=== PATIENT | male | born 1995 | race Caucasian/White ===

== ENCOUNTER → 2016-12-08 | Outpatient (CLI) | payer BC ==
--- NOTE | 2016-12-08 10:56 | KCIC ---
MR of the left knee Indication: Left knee pain. Previous knee injury and surgery for a bone fragment in 2011. Second knee injury with new bone fragment medial to the patella one year ago. Pain. Technique: The standard multiplanar sequences are obtained. COMPARISON: Not available Findings: Medial meniscus: Mild deformity and intrameniscal signal but no clear-cut tear Lateral meniscus: Intact. Anterior cruciate ligament: Intact Posterior cruciate ligament: Intact Medial collateral ligament: Intact. Iliotibial band: Intact. Posterolateral structures: Fibular collateral ligament, biceps tendon and popliteus tendon are intact. Extensor mechanism: Surgical type artifact at the anterior patella and proximal patellar tendon. No acute tear. Fluid: Small joint effusion. Several osteochondral loose bodies are clustered within the suprapatellar recess with the largest individual body measuring 23 mm. Small Alves's cyst, also containing a cluster of osteochondral loose bodies. Articular cartilage -patellofemoral joint: Focal chondromalacia at the far medial femoral trochlea, axial series 4, image 16. -medial compartment: Irregularity of the subchondral bone surface compatible with history of osteochondral repair. Mild subchondral marrow edema, but no evidence of subchondral cyst, fracture or collapse. Heterogeneous signal identified at the weightbearing medial femoral condyle cartilage, compatible with fibrocartilaginous growth. No evidence of cartilage delamination or separation. No evidence of unstable or osteochondral fragment. -lateral compartment:Intact Bones: No significant lesion or acute fracture. Soft tissue: Unremarkable Impression: 1. Subchondral bone surface irregularity at the weightbearing medial femoral condyle, presumably secondary to prior osteochondral repair. Heterogeneous signal within overlying fibrocartilage. No evidence of unstable osteochondral fragment, subchondral cystic change or collapse, or acute cartilage delamination. 2. Mild medial meniscal degeneration without evidence of a tear. 3. Multiple osteochondral loose bodies, clustered in the suprapatellar recess and within a small Alves's cyst. 4. 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 Electronically signed by: Adan Allison MD (12/08/2016 10:53 AM)
== END | disposition home or self-care (01) ==
LOC: KCIC MRI 08:25
PROVIDERS: ATTEND Orthopaedic Surgery
DX: M17.12 Unilateral primary osteoarthritis, left knee (principal); M71.22 Synovial cyst of popliteal space [Baker], left knee; M22.42 Chondromalacia patellae, left knee; S76.102D Unspecified injury of left quadriceps muscle, fascia and tendon, subsequent encounter; M25.862 Other specified joint disorders, left knee; M25.462 Effusion, left knee; X58.XXXD Exposure to other specified factors, subsequent encounter
CPT/HCPCS: 73721

== ENCOUNTER → 2016-12-29 | Outpatient (CLI) | payer BC ==
[2016-12-29 10:14] LABS: ALBUMIN 3.9 g/dL (3.4-5.0); ALBUMIN/GLOBULIN RATIO 1.2 (1.0-1.7); GFR 94.3; POTASSIUM 4.2 mmol/L (3.5-5.1); TOTAL BILIRUBIN 0.3 mg/dL (0.2-1.0); TOTAL PROTEIN 7.2 g/dL (6.4-8.2)
== END | disposition home or self-care (01) ==
LOC: LAB 09:16
PROVIDERS: ATTEND Internal Medicine Cardiovascular Disease
DX: R94.31 Abnormal electrocardiogram [ECG] [EKG] (principal)
CPT/HCPCS: 36415; 80053

== ENCOUNTER → 2017-01-05 | Outpatient (CLI) | payer BC ==
--- NOTE | 2017-01-05 09:53 | CARD ---
APPROVED REPORT EXAM: Two-dimensional and M-mode echocardiogram with Doppler and color Doppler. Other Information Quality : Average Rhythm : Bradycardia, RBBB INDICATION Abnormal ECG 2D DIMENSIONS RVDd2.6 (2.9-3.5cm)Left Atrium(2D)3.6 (1.6-4.0cm) IVSd1.1 (0.7-1.1cm)Aortic Root(2D)3.3 (2.0-3.7cm) LVDd4.7 (3.9-5.9cm)LVOT Diameter2.2 (1.8-2.4cm) PWd1.1 (0.7-1.1cm)LVDs2.8 (2.5-4.0cm) FS (%) 18.3 %SV38.1 ml LVEF(%)52.0 (>50%) Aortic Valve AoV Peak Clemente.101.9cm/sAoV VTI19.2cm AO Peak GR.4.1mmHgLVOT Peak Clemente.81.2cm/s LVOT VTI 19.59cmAO Mean GR.2mmHg MARCELA (VMAX)3.26ec7WIG (VTI)3.97cm2 Mitral Valve MV E Kfkobghc40.5cm/sMV DECEL COWS505sg MV A Gqptwgcl34.4cm/sMV VAW52yx E/A Ratio3.4MV A Isrupfso638wm MVA (PHT)3.42cm2 TDI E/Lateral E'5.3E/Medial E'6.8 Pulmonary Valve PV Peak Mxttnfhq64.3cm/sPV Peak Grad.4mmHg RVOT VTI19.4cm Tricuspid Valve TR P. Zrgpdbgk059li/sRAP LPQTCDMV3skUo TR Peak Gr.85txTuAKBD33daUz Pulmonary Vein S1 Wnytqdry74.3cm/sD2 Bpdsvouq91.9cm/s LEFT VENTRICLE The left ventricle is normal size. There is normal left ventricular wall thickness. Left ventricle sy stolic function is normal. The Ejection Fraction is 50-55%. There is normal LV segmental wall motion. Septal motion consistent with conduction abnormality. The left ventricular diastolic function and fi lling is normal for age. There is no ventricular septal defect visualized. RIGHT VENTRICLE The right ventricle is normal size. The right ventricular systolic function is normal. ATRIA The left atrium size is normal. The right atrium size is normal. The interatrial septum is intact wit h no evidence for an atrial septal defect or patent foramen ovale as noted on 2-D or Doppler imaging. AORTIC VALVE The aortic valve is normal in structure and function. Doppler and Color Flow revealed no significant aortic regurgitation. There is no significant aortic valvular stenosis. MITRAL VALVE The mitral valve is normal in structure and function. There is no mitral valve stenosis. Doppler and Color Flow revealed trace mitral regurgitation. TRICUSPID VALVE The tricuspid valve is normal in structure and function. Doppler and Color Flow revealed trace tricus pid regurgitation. The PA pressure was estimated at 29 mmHg. There is no tricuspid valve stenosis. PULMONIC VALVE The pulmonic valve is not well visualized. Doppler and Color Flow revealed no pulmonic valvular regur gitation. There is no pulmonic valvular stenosis. GREAT VESSELS The aortic root is normal in size. Normal pulmonary venous flow (Doppler). The IVC is dilated and col lapses >50% with inspiration. PERICARDIAL EFFUSION There is no evidence of significant pericardial effusion. Critical Notification Critical Value: No <Conclusion> Left ventricle systolic function is normal. The Ejection Fraction is 50-55%. There is normal LV segmental wall motion. Septal motion consistent with conduction abnormality.
== END | disposition home or self-care (01) ==
LOC: ECHO 08:49
PROVIDERS: ATTEND Internal Medicine Cardiovascular Disease
DX: I08.1 Rheumatic disorders of both mitral and tricuspid valves (principal)
CPT/HCPCS: 93306

== ENCOUNTER 2017-01-26 10:34 | Day surgery (SDC) | payer BC ==
--- NOTE | 2017-01-25 15:17 | PDOC1 ---
History and Physical Date of Admission Date of Admission DATE: 01/26/17 Identification/Chief Complaint Chief Complaint left knee pain Problems: Source Source: Chart review History of Present Illness History of Present Illness Federico is a 21 year old male patient with left knee pain. 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 He states that after activities he occasionally has a loose body float to the superomedial aspect of his knee. If this happens, he just pushes it back down into his knee. Also, he said it has travelled to the lateral aspect of his left knee before, which was painful to put back. An MRI at [facility] on 12.08.16 showed several osteochondral loose bodies in the suprapatellar recess of his left knee and in a barksdale's cyst. It did not show any severe cartilage defect, simply postsurgical changes and chondromalacia. The largest loose body is 23 mm in diameter. Past Medical History Cardiovascular: No pertinent hx Pulmonary: No pertinent hx GI: No pertinent hx Past Surgical History Past Surgical History: Other (left knee transchondral drilling of OCD lesion ) Family History Family History: No Significant Social History Smoke: No ALCOHOL: rare Drugs: None Current Medications Current Medications Active Scripts Active Reported No Known Medications Prior To Admisstion (Info) Each 1 Each Allergies Allergies: Coded Allergies: Penicillins (Verified Allergy, Unknown, UNKNOWN ( HAPPENED A CHILD), ) Physical Exam General: Alert, Oriented X3, Cooperative, No acute distress HEENT: Atraumatic, EOMI Lungs: Normal air movement Heart: RRR Abdomen: Soft Extremities: No clubbing, No cyanosis, No edema, Normal pulses, Other (LEFT KNEE normal alignment, no masses and no effusion. No tenderness to palpation. Range of motion is 0-125 degrees, without crepitus or pain at the extremes of motion. The knee is stable to varus and valgus stress without subluxation or laxity. Muscle strength is normal (5/5) for quadriceps and hamstrings, and muscle tone is normal. The skin is normal rashes, lesions or ulcers, and a well healed midline scar from his previous surgery. Light touch sensation is intact. No edema and no varicosities. Dorsalis pedis pulse is intact and capillary refill is normal. No palpable loose bodies.) Skin: No rashes, No breakdown, No significant lesion Neuro: Normal speech, Sensation intact Psych/Mental Status: Mental status NL, Mood NL Images Images An MRI at [facility] on 12.08.16 showed several osteochondral loose bodies in the suprapatellar recess of his left knee and in a barksdale's cyst. It did not show any severe cartilage defect, simply postsurgical changes and chondromalacia. The largest loose body is 23 mm in diameter. VTE Prophylaxis Ordered VTE Prophylaxis Devices: Yes VTE Pharmacological Prophylaxi: Yes Assessment/Plan Assessment/Plan Loose body of left knee, left knee pain. His MRI does show multiple loose bodies. He fortunately does not have any major sure cartilage defect simply chondromalacia and postsurgical changes. In this case. Dr. Glez recommended arthroscopic loose body removal, and he likely would need minor chondroplasty, also arthroscopically at the same time. We discussed potential risks of arthroscopic surgery, including risks of bleeding, infection , progressive arthritis, blood clots, or other potential surgical or anesthetic complications. All of the patient's questions were answered and he desires to proceed with surgery. He would like to get this done as soon as possible so that he may work later this summer. He will need 2-3 weeks of limited activity postoperatively. CANDIDO ROACH Jan 25, 2017 15:17
[~2017-01-26] VITALS: Ht 193 cm; Wt 105.7 kg
[~2017-01-26 10:34] MED LIST: BUPIVAC MPF-EPI 0.5%-1:200000 30 ML VIAL. ONE; CLINDAMYCIN 600MG PREMIX 50 ML IV PRN; EPINEPHrine VIAL 30 MG/30 ML VIAL ONE; HYDROmorphone 2 MG/ML VIAL IV PRN; IV RINGERS,LACTATED 1000ML 1,000 ML IV SCH; LIDOCAINE 1% 1 ML SYRINGE. ID PRN; LIDOCAINE 2% PF Vial for OR 5 ML VIAL. ONE; MORPHINE SULFATE 4 MG/ML DISP.SYRIN. IV PRN; ONDANSETRON PF 4 MG/2 ML VIAL. IV PRN; PROCHLORPERAZINE 10 MG/2 ML VIAL. IV PRN; PROPOFOL 20 ML IV ONE; fentaNYL PF VIAL 100 MCG/2 ML VIAL IV PRN; fentaNYL PF VIAL 100 MCG/2 ML VIAL ONE
[2017-01-26] MEDS ORDERED: MIDAZOLAM HCL/PF 2 MG/2 ML VIAL. ONE (11:29)
[2017-01-26] MEDS ORDERED: FAMOTIDINE 20 MG/2 ML VIAL ONE (11:29)
[2017-01-26] MEDS ORDERED: DEXAMETHASONE SOD PHOS 20 MG/5 ML VIAL. ONE (11:29)
[2017-01-26] MEDS ORDERED: ONDANSETRON PF 4 MG/2 ML VIAL. ONE (11:29)
[2017-01-26] MEDS ORDERED: ePHEDrine PF IN SALINE 50 MG/5 ML DISP.SYRIN IV ONE (16:14)
[2017-01-26] MEDS ORDERED: SEVOFLURANE 61 TO 120 MINUTES. IH ONE (16:28)
[2017-01-26] MEDS ORDERED: HYDROcodone/APAP 7.5/325MG 1 TAB TABLET PO ONE (17:15)
[2017-01-26 17:30] VITALS: BP 123/72
--- NOTE | 2017-02-07 13:16 | PDOC ---
BRIEF OPERATIVE NOTE Date: Jan 26, 2017 Pre-Op Diagnosis left knee loose body Post-Op Diagnosis left knee loose body Procedure Performed left knee arthroscopy with loose body removal, 25 mm Surgeon Amaris Mckenna Anesthesia Type: General Blood Loss 5 mL Specimens Obtained loose body given to patient in a specimen container. Arthroscopy photos of the 25 mm loose body were taken. Findings 25 mm loose body. Complications none LALITA ROBERTS MD Feb 07, 2017 13:16
--- NOTE | 2017-02-07 13:24 | PDOC4 ---
Operative Note Operative Note Date of Procedure: January 26, 2017 Preoperative Diagnosis: left knee loose body Postoperative Diagnosis: left knee loose body Procedures Performed: left knee arthroscopy with loose body removal Surgeon: Lalita Glez MD Bottoming Room Inspector: Ivanna Mckenna PA-C Anesthesia: General Estimated Blood Loss: 5 mL Specimens: none Drains: none Complications: none Tourniquet time: Approximately 25 min. 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 Recently he developed loose body symptoms. An MRI shows a large loose body, greater than 20 mm in diameter , and this seems to be causing most of his symptoms. He does have some chondromalacia and a chondral defect but it is not as impressive as one would expect from the size of the loose body. Due to his ongoing symptoms, I recommended arthroscopic loose body removal. I felt we would reevaluate after that, and reconsider some type of massive cartilage allograft procedure if he has persistent symptoms from the area of chondral defect in the femoral condyle once the loose body symptoms were resolved. We talked about the risks and benefits of proceeding with an arthroscopic procedure. We talked about potential risks of ongoing pain, progressive arthritis, bleeding, infection, blood clots, or other potential surgical or anesthetic complications. All of the patient's questions about surgery were answered and they desired to proceed. Written consent was obtained. Description of Operation: The patient was identified in the preoperative holding area. The correct left knee was marked by me. The patient was taken to the operating room, where a general anesthetic was used. Preoperative antibiotics were given intravenously. A time-out procedure was performed. A tourniquet was placed on the upper thigh. Local anesthetic with epinephrine was injected sterilely into the knee joint, 20 mL of 0.25% Marcaine with epinephrine. The limb was prepped sterilely and sterile drapes were applied. The limb was exsanguinated with an Esmarch bandage and the tourniquet was inflated to 300 mm Hg. Lateral and medial arthroscopy portals were established. The medial meniscus was normal and stable to probing.The medial tibiofemoral joint showed evidence of the prior osteochondritis dissecans, which showed partial healing and some cartilage coverage although significant chondromalacia as well. There is no exposed bone. There is no large bony defect. The chondromalacia does extend for about 20 mm in diameter, and is Outerbridge grade 3. An arthroscopic shaving chondroplasty was performed gently. The lateral tibiofemoral joint showed a normal lateral meniscus, so no lateral meniscectomy was required.The lateral articular surfaces showed normal articular surfaces so no chondroplasty was required. The patellofemoral joint showed chondromalacia Outerbridge grade I, so no chondroplasty was required. The suprapatellar pouch showed an enormous loose body. It was 25 mm in diameter. Despite enlargement of the medial portal, I could not remove the loose body in a single piece. It was a firm bony fragment. It was difficult to break the fragment into because it was so large and mobile. Ultimately I used the trick of stabilizing the loose body by holding it in place with a percutaneous 18-gauge spinal needle, and then using an arthroscopic upbiter to split the loose body into two pieces. Despite the smaller fragments, still had difficulty removing those two loose body fragments from the enlarged medial portal due to their large size. Once the loose bodies were removed, thorough irrigation was performed and I checked the remainder of the knee and verified no additional loose bodies. Arthroscopic photos were taken of the loose body sitting on the back table. It was approximately 25 mm in diameter when I pieced the two fragments back together (as they had originally been positioned) as a single fragment. Copious irrigation was used to drain all bony and chondral fragments, and the knee was drained of fluid. The incisions were closed with 3-0 Prolene by my assistant pastry chef, and then she injected additional local anesthetic with epinephrine, 30 mL's of 0.5% Marcaine with epinephrine. A bulky sterile dressing was applied by my assistant pastry chef and the tourniquet was released. Ivanna Mckenna PA-C, my assistant pastry chef, helped throughout the procedure. She initially helped position the patient on the operating table with a thigh brace , lithotomy leg keita and tourniquet. Intraoperatively she manipulated the knee into the correct positions for arthroscopy while I ran the arthroscope in my left hand and shaver probe or other instruments in my right hand. She manipulated the knee, so that I could manipulate the arthroscope with my left hand, and manipulate the loose body grasper in my right hand. Finally, at the end of the case, she helped remove the lithotomy leg keita, thigh brace and tourniquet and helped transfer the patient back to a rsteele in good condition. Needle and sponge counts were correct and there were no apparent complications. Lalita Glez MD 02/07/2017 12:56 PM LALITA GLEZ MD Feb 07, 2017 13:24
== END 2017-01-26 18:21 | disposition home or self-care (01) ==
LOC: SURG 10:34
PROVIDERS: ATTEND Orthopaedic Surgery
DX: M23.42 Loose body in knee, left knee (principal); Z87.39 Personal history of other diseases of the musculoskeletal system and connective tissue; Z72.89 Other problems related to lifestyle; Z88.0 Allergy status to penicillin
CPT/HCPCS: 29874; C1782; J0171; J1100; J2250; J2405; J2704; J3010; J3490; J7120; S0028; J2001

== ENCOUNTER → 2018-05-27 | Outpatient (CLI) | payer BC ==
--- NOTE | 2018-05-27 16:41 | KCIC ---
Three-view left knee study Clinical indications: Generalized left knee pain worse in the patellar area for 4 days. No known injury. FINDINGS: No acute fracture or dislocation or osteolytic process is seen. There is mild degenerative joint space narrowing and spurring of the medial tibiofemoral joint compartment. Radiopaque loose bodies are present within the posterior aspect of the popliteal fossa medially and may represent synovial osteochondromatosis within a Alves's cyst. No significant left knee joint effusion is seen. 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 Electronically signed by: Ed Colin MD (05/27/2018 4:38 PM) [id number]
== END | disposition home or self-care (01) ==
LOC: KCIC 15:28
PROVIDERS: ATTEND Nurse Practitioner Family
DX: M17.12 Unilateral primary osteoarthritis, left knee (principal); M71.22 Synovial cyst of popliteal space [Baker], left knee; M23.42 Loose body in knee, left knee; D48.0 Neoplasm of uncertain behavior of bone and articular cartilage
CPT/HCPCS: 73562